=== PATIENT | female | born 1950 | race Caucasian/White ===

== ENCOUNTER 2025-05-15 14:46 | Emergency (ER) | payer MEDICARE, BC ==
[~2025-05-15] VITALS: Ht 152.4 cm; Wt 66.3 kg
--- NOTE | 2025-05-15 14:58 | Physician Documentation ---
History of Present Illness ~ Chief Complaint: Mechanical Fall Stated Complaint: FALL HIT HEAD NO THINNERS Time Seen by MD: 15:53 HPI Patient is a very pleasant 75-year-old female that presents to the emergency department for evaluation of head injury and injury to her right hand sustained after mechanical ground level fall this morning. Patient reports that she went to work but coworkers reported that she needed to come to the emergency department to have her head scan due to being on aspirin and due to the bruising that she sustained. Patient denies loss of consciousness during the fall patient denies neck pain significant headache visual changes nausea vomiting or any other symptoms at this time. Medication Reconciliation Allergies: Coded Allergies: No Known Allergies (Unverified , 05/15/25) Review of Systems ROS As stated above in the HPI, otherwise all systems are reviewed and negative. Physical Exam Vital Signs: Temperature: 97.9, Source: Temporal, Heart Rate: 90, Respiratory Rate: 18, BP: 174/74, Pulse Oximetry: 96, Weight: 66.300 Oxygen Flow Rate: 0 Physical Exam VITALS: Reviewed and as above. GENERAL: Alert, no apparent distress. HEENT: Normocephalic, atraumatic, PERRL, EOMI, dry mucosa, no erythema RESPIRATORY: Lungs clear, normal breath sounds, no respiratory distress. CHEST: No accessory muscle use, no retractions CV: Regular rate, rhythm, no edema, no murmur, No: JVD GI: Soft, non-tender, bowels sounds present, no rebound, guarding, or rigidity BACK: No CVA tenderness, or swelling MUSCULOSKELETAL No deformities, edema noted to the lateral aspect of the hand, contusion noted to the forehead during examination. SKIN: Warm and dry, no rash NEURO: Oriented x4, No motor or sensory deficit PSYCH: Normal mood and affect, no agitation Progress Results/Orders Results/Orders Orders - CARLA MICHELLE [employer] Ct Head (05/15/25 14:58) Ct Cervical Spine (05/15/25 14:58) Hand, Complete (3vw Min) (05/15/25 14:58) Completed Orders - [facility]LA MICHELLE [employer] Ct Head (05/15/25 14:58) Ct Cervical Spine (05/15/25 14:58) Hand, Complete (3vw Min) (05/15/25 14:58) Vital Signs 05/15/25 14:52 Temp 97.9 Pulse 90 Resp 18 B/P (MAP) 174/74 Pulse Ox 96 O2 Flow Rate 0 Medical Decision Making Additional information obtaine: other Findings Chief Complaint: Head injury and right hand injury following ground-level fall History of Present Illness: 75-year-old female presented to the emergency department after sustaining a mechanical ground-level fall this morning at work. Coworkers recommended evaluation due to aspirin use and visible bruising. Patient denies loss of consciousness, neck pain, significant headache, visual changes, nausea, or vomiting. No other concerning symptoms reported. Diagnostic Studies: CT head and face: Negative for intracranial hemorrhage or acute traumatic findings X-ray left hand: Fifth metacarpal shaft fracture, non-displaced Small laceration repaired with Dermabond Medical Decision-Making: Head Injury Assessment: Patient sustained blunt head trauma while on aspirin therapy. Initial CT imaging was obtained given age >60 years and antiplatelet use, which are established risk factors for intracranial hemorrhage. CT head demonstrated no acute intracranial pathology. Patient is neurologically intact at baseline examination. Per [employer] guidelines, routine repeat imaging is not indicated in patients on antiplatelet medications who have an initial head CT without hemorrhage and are at baseline neurologic examination. Similarly, routine admission or observation is not warranted for this patient, as she does not meet criteria for extended monitoring beyond the antiplatelet use. While antiplatelet agents are associated with higher risk of intracranial hemorrhage after mild head trauma, initial neuroimaging is sufficient to exclude clinically significant injuries in neurologically intact patients, and delayed intracranial hemorrhage in this population is rare (0.3% in patients >55 years with negative initial CT). Hand Injury Assessment: Non-displaced fifth metacarpal shaft fracture identified on radiographs. This fracture pattern is appropriate for non-surgical management with immobilization. The small laceration was successfully repaired with Dermabond, which is appropriate for minor dermatologic procedures in patients on aspirin, as bleeding risk is negligible. Disposition Considerations: Patient is alert, oriented, and neurologically intact. She has appropriate social support for home discharge. Given her age and fall history, outpatient fall risk assessment and evaluation of aspirin appropriateness are indicated. Disposition: Discharge home with orthopedic follow-up for metacarpal fracture management and primary care follow-up for fall risk assessment. Discharge Instructions Provided: Verbal and written instructions regarding symptoms of delayed intracranial hemorrhage (severe headache, vomiting, confusion, somnolence, neurologic changes) Recommendation for responsible adult supervision for 24 hours post-injury Hand immobilization instructions and activity restrictions Return precautions for worsening symptoms Outpatient referral recommended for fall risk assessment and risk/benefit evaluation of aspirin therapy Risk Stratification: Low risk for delayed complications. Patient is neurologically normal with negative imaging, appropriate for safe discharge without observation or repeat imaging per evidence-based guidelines. Differential Dx:Considerations: Include: Closed head injury, Cardiac injury, Fracture(s), Intraabdominal injury, Pneumothorax, Cerebral contusion, Pulmonary contusion, Spine injury, Tracheal injury, Urological injury, Vascular injury, Abrasion(s), Contusion(s), Foreign body(s), Hematoma(s), Laceration(s), Encephalopathy, Other Departure Disposition: 01 HOME / SELF CARE / HOMELESS Impression: Primary Impression: Fall Additional Impressions: Fracture of 5th metatarsal Skin tear Contusion of head Discharge Instructions: Contusion, Metatarsal Fracture, Olecranon Fracture Additional Instructions: Your Diagnosis You came to the emergency department after a fall. You were evaluated and found to have: A head injury (your CT scan of your head was normal) A broken bone in your left hand (fifth metatarsal fracture - this is one of the long bones in your hand) A small cut that was closed with medical glue What You Need to Know About Your Head Injury Your CT scan did not show any bleeding or serious injury to your brain. However, because you take aspirin, you need to watch carefully for any signs of delayed bleeding in the first 24 hours after your injury. Important: Have a responsible adult stay with you for the next 24 hours. Return to the emergency department immediately if you develop any of these symptoms: Severe headache that gets worse or won't go away Repeated vomiting Confusion or unusual behavior Extreme drowsiness or difficulty waking up Weakness or numbness in your arms or legs Slurred speech Seizures Clear or bloody fluid draining from your nose or ears Vision changes What You Need to Know About Your Hand Fracture You have a broken bone in your left hand (fifth metatarsal). This type of fracture usually heals very well without surgery. How to care for your fracture: Wear a walking boot or supportive shoe as recommended You may bear weight as tolerated - walk on it as much as your pain allows Ice the injured area for 15-20 minutes several times a day for the first few days to reduce swelling Elevate your hand above the level of your heart when sitting or lying down to reduce swelling Take [id number] pain medication as needed (follow the directions on the bottle) Activity: You may gradually increase your activities as your pain improves Most people can return to normal activities within 2-6 weeks Avoid high-impact activities until your fracture is fully healed What to expect: Your hand will likely be swollen and painful for the first 1-2 weeks Most fractures like yours heal within 4-6 weeks You should notice gradual improvement in pain and swelling over the next few weeks Wound Care The small cut on your hand was closed with medical glue (Dermabond): Keep the area clean and dry for 5-7 days The glue will fall off on its own - do not pick at it You may shower, but avoid soaking the area in water Watch for signs of infection: increasing redness, warmth, swelling, pus, or red streaks Follow-Up Care You should follow up with your primary care doctor within 1-2 weeks to: Check on your recovery from the fall Discuss your risk of falling again and ways to prevent future falls Review whether you should continue taking aspirin You do not need routine follow-up for your hand fracture unless you develop problems. Most people with this type of fracture heal well without additional appointments. Contact your primary care doctor or return to the emergency department if: Your pain is getting worse instead of better after a few days You develop numbness or tingling in your hand Your hand becomes very swollen, pale, or cold You still have significant pain after 4 months You have any concerns about your recovery Returning to Daily Activities Work: You may return to work when you feel able, depending on your job requirements Driving: You may drive when you can safely operate the vehicle without pain Exercise: Gradually increase activity as tolerated; avoid high-impact activities until fully healed Was placed in a splint to immobilize the 5th metatarsal, skin tear was repaired, patient will follow up with Orthopedics at [facility] office #[phone]. Patient will follow up with the primary care provider patient return to the emergency department with any worsening or recurrent symptoms or any additional concerning symptoms we discussed here today. If you have any questions or concerns about your recovery, contact your primary care doctor or return to the emergency department. Remember: Return to the emergency department immediately if you develop any of the warning signs listed above, especially symptoms of delayed bleeding from your head injury. Referrals: NO PRIMARY CARE PROVIDER (PCP) Education Educated: Patient Educated regarding: diagnosis, treatment, need for follow up Signature Scribe Signature: A Attestation: Scribed for Carla Michelle by YUAVL Ann . 05/15/25 17:03 CARLA MICHELLE May 15, 2025 14:58
--- NOTE | 2025-05-15 15:47 | RADIOLOGY REPORT ---
EXAM: CT CT HEAD INDICATION: Fall, head injury TECHNIQUE: CT of the head without intravenous contrast. Radiation Dose Information: CT Dose: CTDI volume is 58.3 mGy. Dose-length product is 1012.6 mGy*cm The dose indicators for CT are the volume Computed Tomography (CT) Dose Index (CTDIvol) and the Dose Length Product (DLP), and are measured in units of mGy and mGy-cm, respectively. These indicators are not patient dose, but values generated from the CT scanner acquisition factors. The report includes radiation exposure data for exposures received during this examination. COMPARISON: None FINDINGS: Motion artifact degrades fine detail. No acute territorial infarct, intracranial hemorrhage, or mass effect. There are global involutional changes with compensatory prominence of the ventricles and sulci. Patchy periventricular and subcortical white matter hypoattenuation is nonspecific but may be related to small vessel ischemic disease. Bilateral lens implants. The paranasal sinuses and mastoid air cells are clear. Small right frontal scalp hematoma without underlying fracture. IMPRESSION: 1. No acute territorial infarct, intracranial hemorrhage, or mass effect. 2. Age-related involutional changes. Chronic microvascular changes. 3. Small right frontal scalp hematoma without underlying fracture.
--- NOTE | 2025-05-15 15:49 | RADIOLOGY REPORT ---
EXAM: CT CT CERVICAL SPINE INDICATION: Fall, head injury EXAM DATE: 05/15/2025 03:06 PM COMPARISON: None TECHNIQUE: CT exam of the cervical spine was performed without intravenous contrast. CT Dose: CTDI volume is 23 mGy. Dose-length product is 448 mGy*cm FINDINGS: No evidence of acute fracture. Alignment is within normal limits. Degenerative changes of the cervical spine. No high-grade canal stenosis. No prevertebral edema. Paraspinal soft tissues are within normal limits. Visualized lung apices are clear. IMPRESSION: NO EVIDENCE OF ACUTE FRACTURE OR TRAUMATIC MALALIGNMENT OF THE CERVICAL SPINE.
--- NOTE | 2025-05-15 15:53 | RADIOLOGY REPORT ---
EXAM: DI HAND, COMPLETE (3VW MIN) CLINICAL HISTORY: Fall, pain COMPARISON: None TECHNIQUE: DI HAND, COMPLETE (3VW MIN), right hand Findings There is a nondisplaced fracture involving the 5th metacarpal shaft. There is overlying soft tissue swelling. There are mild interphalangeal joint degenerative changes. Mild degenerative changes of the 1st and 2nd carpometacarpal joints. Impression: Nondisplaced fracture of the 5th metacarpal shaft with overlying soft tissue swelling
[2025-05-15 17:12] VITALS: BP 134/86; PULSE 78; RESP 16; TEMP 97.6; O2SAT 98
== END 2025-05-15 17:31 | disposition home or self-care (01) ==
LOC: ER 14:47
DX: S62.326A Displaced fracture of shaft of fifth metacarpal bone, right hand, initial encounter for closed fracture (principal); S61.412A Laceration without foreign body of left hand, initial encounter; S00.93XA Contusion of unspecified part of head, initial encounter; R51.9 Headache, unspecified; W18.30XA Fall on same level, unspecified, initial encounter; Y93.89 Activity, other specified; Y92.89 Other specified places as the place of occurrence of the external cause; Y99.0 Civilian activity done for income or pay
CPT/HCPCS: 12001; 29130; 70450; 72125; 73130; 99284